=== PATIENT | male | born 1990 | race Caucasian/White ===

== ENCOUNTER 2017-06-06 12:02 | Inpatient (IN) | payer OTHER ==
[~2017-06-06] VITALS: Ht 203.2 cm; Wt 120.8 kg
[2017-06-06 14:17] LABS: BASOPHIL % 0.6 % (0-2); PLATELET COUNT 158 x10^3mcL (130-400); RED CELL DISTRIBUTION WIDTH 13.1 % (11.5-14.5)
[2017-06-06 14:28] LABS: CALCIUM 8.1 mg/dL (8.5-10.1); CARBON DIOXIDE 29.5 mmol/L (21-32); CHLORIDE SERUM 105 mmol/L (98-107); CREATININE SERUM 1.1 mg/dL (0.7-1.3); GFR1 > 60 mL/min; GLUCOSE SERUM 107 mg/dL (74-106); SODIUM SERUM 140 mmol/L (136-145)
[2017-06-06 14:36] LABS: ALKALINE PHOSPHATASE 48 U/L (46-116); ALT/SGPT 30 U/L (16-63); AST/SGOT 16 U/L (15-37); BILIRUBIN TOTAL 0.3 mg/dL (0.20-1.00); LIPASE 79 IU/L (73-393); TOTAL PROTEIN, SERUM 6.8 g/dL (6.4-8.2)
[2017-06-06 14:37] LABS: ALBUMIN 3.2 g/dL (3.4-5.0)
[2017-06-06 18:35] VITALS: BP 125/74
[2017-06-06 19:51] LABS: microscopic required? NO
[2017-06-06 20:37] LABS: UA SPECIFIC GRAVITY >=1.030 (1.005-1.035); urine erythrocyte NEGATIVE (NEGATIVE)
[2017-06-06 22:52] VITALS: BP 132/85
[2017-06-06 23:01] VITALS: Ht 203.2 cm; Wt 120.8 kg
[2017-06-07 05:34] VITALS: BP 125/78
[2017-06-07 07:20] LABS: BASOPHIL % 0.5 % (0-2); PLATELET COUNT 139 x10^3mcL (130-400); RED CELL DISTRIBUTION WIDTH 13.1 % (11.5-14.5)
[2017-06-07 08:29] LABS: ALKALINE PHOSPHATASE 37 U/L (46-116); ALT/SGPT 32 U/L (16-63); AST/SGOT 20 U/L (15-37); BILIRUBIN TOTAL 0.3 mg/dL (0.20-1.00); CALCIUM 8.2 mg/dL (8.5-10.1); CHLORIDE SERUM 106 mmol/L (98-107); CREATININE SERUM 0.8 mg/dL (0.7-1.3); GFR1 > 60 mL/min; GLUCOSE SERUM 90 mg/dL (74-106); POTASSIUM SERUM 4.2 mmol/L (3.5-5.1); SODIUM SERUM 140 mmol/L (136-145); TOTAL PROTEIN, SERUM 6.4 g/dL (6.4-8.2)
[2017-06-07 08:35] LABS: ALBUMIN 2.9 g/dL (3.4-5.0)
[2017-06-07 10:25] VITALS: BP 131/76
[2017-06-07 17:26] VITALS: BP 133/50
[2017-06-07 20:34] VITALS: BP 137/95
[2017-06-08 04:47] VITALS: BP 154/92
[2017-06-08 05:03] VITALS: BP 129/83
[2017-06-08 08:31] VITALS: BP 144/77
[2017-06-08 10:40] VITALS: BP 142/91
[2017-06-08 16:42] VITALS: BP 109/72
[2017-06-08 21:00] VITALS: BP 139/70
[2017-06-09 06:45] LABS: BASOPHIL % 0.5 % (0-2); RED CELL DISTRIBUTION WIDTH 13.2 % (11.5-14.5)
[2017-06-09 06:47] LABS: CALCIUM 8.8 mg/dL (8.5-10.1); CARBON DIOXIDE 31.6 mmol/L (21-32); CHLORIDE SERUM 103 mmol/L (98-107); GFR1 > 60 mL/min; GLUCOSE SERUM 94 mg/dL (74-106); POTASSIUM SERUM 4.4 mmol/L (3.5-5.1); SODIUM SERUM 140 mmol/L (136-145)
[2017-06-09 09:52] VITALS: BP 150/91
[2017-06-09 10:02] VITALS: BP 150/91
[2017-06-09] MEDS ORDERED: NORCO1 TA2 PO (11:23)
[2017-06-09] MEDS ORDERED: CLEOCIN HCL300 MG PO (11:24)
[2017-06-09] MEDS ORDERED: DIFLUCAN200 MG PO (11:25)
[2017-06-09] MEDS ORDERED: DIFLUCAN200 MG (11:28)
[2017-06-09 12:14] LABS: PLATELET COUNT 170 x10^3mcL (130-400)
== END 2017-06-09 12:46 | disposition home or self-care (01) | DRG 383 ==
LOC: ED 12:02 → MU 16:20 → ED 16:20 → MU 16:40
PROVIDERS: Emergency Medicine; Internal Medicine Pulmonary Disease
PROC: 3E0234Z Introduction of Serum, Toxoid and Vaccine into Muscle, Percutaneous Approach (ICD-10-PCS; principal; 2017-06-06)
DX: L03.116 Cellulitis of left lower limb (principal); L97.311 Non-pressure chronic ulcer of right ankle limited to breakdown of skin; L97.511 Non-pressure chronic ulcer of other part of right foot limited to breakdown of skin; F15.10 Other stimulant abuse, uncomplicated; B35.1 Tinea unguium; L02.611 Cutaneous abscess of right foot; B35.3 Tinea pedis; L03.115 Cellulitis of right lower limb; F17.210 Nicotine dependence, cigarettes, uncomplicated; F12.10 Cannabis abuse, uncomplicated; L97.521 Non-pressure chronic ulcer of other part of left foot limited to breakdown of skin; Z23 Encounter for immunization; L02.612 Cutaneous abscess of left foot
CPT/HCPCS: 90658; J0696; J1450; J1650; J1885; J3370; J7030; Q0092

== ENCOUNTER 2018-01-26 11:01 | Emergency (ER) | payer OTHER ==
[~2018-01-26 11:01] MED LIST: CLEOCIN HCL300 MG PO; DIFLUCAN200 MG; DIFLUCAN200 MG PO; NORCO1 TA2 PO
[2018-01-26 11:14] VITALS: Ht 203.2 cm
[2018-01-26 11:48] VITALS: BP 145/89
== END 2018-01-26 11:49 ==
LOC: ED 11:01
DX: S00.81XA Abrasion of other part of head, initial encounter (principal); F15.90 Other stimulant use, unspecified, uncomplicated; X83.8XXA Intentional self-harm by other specified means, initial encounter; Y93.89 Activity, other specified; Y92.89 Other specified places as the place of occurrence of the external cause; Y99.8 Other external cause status
CPT/HCPCS: 90715

== ENCOUNTER 2020-05-05 18:34 | Emergency (ER) | payer OTHER ==
[~2020-05-05] VITALS: Ht 172.7 cm; Wt 77.1 kg
[2020-05-05 18:46] VITALS: Ht 172.7 cm; Wt 77.1 kg
[2020-05-05 19:06] LABS: BASOPHIL % 0.5 % (0-2); PLATELET COUNT 172 x10^3mcL (130-400); RED CELL DISTRIBUTION WIDTH 12.8 % (11.5-14.5)
[2020-05-05 19:26] LABS: CALCIUM 9.1 mg/dL (8.5-10.1); CARBON DIOXIDE 26.7 mmol/L (21-32); CHLORIDE SERUM 106 mmol/L (98-107); CREATININE SERUM 1.5 mg/dL (0.7-1.3); GFR1 58 mL/min; GLUCOSE SERUM 97 mg/dL (74-106); POTASSIUM SERUM 3.5 mmol/L (3.5-5.1); SODIUM SERUM 143 mmol/L (136-145)
[2020-05-05 19:31] LABS: ALBUMIN 3.7 g/dL (3.4-5.0); ALKALINE PHOSPHATASE 53 U/L (46-116); ALT/SGPT 26 U/L (16-63); AST/SGOT 19 U/L (15-37); BILIRUBIN TOTAL 0.31 mg/dL (0.20-1.00); TOTAL PROTEIN, SERUM 6.9 g/dL (6.4-8.2)
[2020-05-05 19:39] LABS: UA SPECIFIC GRAVITY >=1.030 (1.005-1.035); microscopic required? YES; urine erythrocyte NEGATIVE (NEGATIVE)
[2020-05-05 19:58] LABS: AMPHETAMINE QUAL UR POSITIVE (See below)
[2020-05-06 06:53] VITALS: BP 144/79
== END 2020-05-06 06:53 | disposition home or self-care (01) ==
LOC: ED 18:34
PROVIDERS: Emergency Medicine
DX: S20.212A Contusion of left front wall of thorax, initial encounter (principal); S00.93XA Contusion of unspecified part of head, initial encounter; S40.022A Contusion of left upper arm, initial encounter; S80.12XA Contusion of left lower leg, initial encounter; R45.851 Suicidal ideations; F10.129 Alcohol abuse with intoxication, unspecified; F17.210 Nicotine dependence, cigarettes, uncomplicated; Y04.8XXA Assault by other bodily force, initial encounter; Y93.89 Activity, other specified; Y92.89 Other specified places as the place of occurrence of the external cause; Y99.8 Other external cause status
CPT/HCPCS: 99406; G0480; J1885